=== PATIENT | female | born 1990 | race Caucasian/White ===

== ENCOUNTER 2019-02-28 21:35 | Emergency (ER) | payer MEDICAID, OTHER ==
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
[2019-02-28 22:12] LABS: PLATELET COUNT 346 10^3/uL (150-400)
[2019-02-28] MEDS ORDERED: OLANZapine 5 MG TAB PO ONE (23:21)
[2019-02-28] MEDS ORDERED: HALOPERIDOL LACT 5 MG/ML INJ IM ONE (23:52)
[2019-03-01] MEDS ORDERED: OLANZapine DISINTEGR 10 MG TAB PO ONE (05:52)
[2019-03-01] MEDS ORDERED: MIDAZOLAM 10 MG/2 ML VIAL ONE (06:03)
[2019-03-01] MEDS ORDERED: MIDAZOLAM 10 MG/2 ML VIAL IM ONE (06:18)
[2019-03-01] MEDS ORDERED: HALOPERIDOL LACT 5 MG/ML INJ IM PRN (09:18)
[2019-03-01] MEDS ORDERED: LORazepam 2 MG/ML INJ IM ONE ×2 (09:19→14:51)
[2019-03-01] MEDS ORDERED: HALOPERIDOL LACT 5 MG/ML INJ IM ONE ×2 (09:26→14:52)
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
--- NOTE | 2019-03-01 13:45 | ASMTTCLDSP ---
TLC Discharge Disposition Disposition: Answers: Transfer Disposition Notes: Notes: Transfer/placement accepted at [facility] under Dr. Raj Pretty. Discharge Concerns/Recommendations: Notes: In consultation with [facility] ED provider, Matt Jorge MD, and on-call psychiatrist Jamison Berry MD, both concurred that pt appears to meet 27-65 criteria requiring psychiatric hospitalization as pt appears to be gravely disabled due to a mental illness condition. Was patient given the Answers: Not applicable Inpatient Behavioral Health Prohibited Belongings List while in the ED? Type of Hold: Answers: M1/72-hour Hold Hold initiated by: Answers: Police For Transfers, Accepting [facility] Facility: For Transfers, Accepting Raj Pretty MD Psychiatrist: For Transfers, Reason Acuity, Vickie Cava unable to accommodate due to Patient is Being inability for mechanical restraints. Transferred: Date Signed: 03/01/2019 01:42 PM Electronically Signed By:Stevie Tyson
[2019-03-01 16:10] VITALS: BP 145/75
== END 2019-03-01 16:11 ==
DX: F31.5 Bipolar disorder, current episode depressed, severe, with psychotic features (principal)
CPT/HCPCS: 80305; G0480; J1630; J2060; J2250